=== PATIENT | female | born 1990 | race Caucasian/White ===

== ENCOUNTER 2019-06-24 20:11 | Emergency (ER) | payer OTHER ==
[~2019-06-24] VITALS: Ht 154.9 cm; Wt 56.7 kg
--- NOTE | 2019-06-24 20:35 | PHYS DOC ---
Adult General Chief Complaint Chief Complaint: facial numbness [facility] HPI 29-year-old female presents with left-sided facial numbness. The patient started to notice around 4 PM that her taste sensation was altered. She looked in the near a couple hours later and noticed that the left side of her mouth did not fully retract when she smiled. She also has decreased skin sensation of the upper middle and lower face. She further complains that she doesn't think her left eye is blinking as fast as the right. She's never had this before. The patient does have a history of migraines. She has had a migraine earlier today, but now states just a mild headache. She has no other deficits or complaints. Review of Systems Review of Systems Constitutional: Denies fever or chills [] Eyes: Denies change in visual acuity, redness, or eye pain [] HENT: Denies nasal congestion or sore throat [] Respiratory: Denies cough or shortness of breath [] Cardiovascular: No additional information not addressed in HPI [] GI: Denies abdominal pain, nausea, vomiting, bloody stools or diarrhea [] : Denies dysuria or hematuria [] Musculoskeletal: Denies back pain or joint pain [] Integument: Denies rash or skin lesions [] Neurologic: Left-sided facial numbness, headache.[] Endocrine: Denies polyuria or polydipsia [] All other systems were reviewed and found to be within normal limits, except as documented in this note. Physical Exam Physical Exam Constitutional: Well developed, well nourished, no acute distress, non-toxic appearance. [] HENT: Normocephalic, atraumatic, bilateral external ears normal, oropharynx moist, no oral exudates, nose normal. [] Eyes: PERRLA, EOMI, conjunctiva normal, no discharge. [] Neck: Normal range of motion, no tenderness, supple, no stridor. [] Cardiovascular:Heart rate regular rhythm, no murmur [] Lungs & Thorax: Bilateral breath sounds clear to auscultation [] Abdomen: Bowel sounds normal, soft, no tenderness, no masses, no pulsatile masses. [] Skin: Warm, dry, no erythema, no rash. [] Back: No tenderness, no CVA tenderness. [] Extremities: No tenderness, no cyanosis, no clubbing, ROM intact, no edema. [] Neurologic: Alert and oriented X 3, decreased sensation on the left side of face upper, middle, and lower. Decreased eye closing strength of the left eye. Uneven smile on the left side. [] Psychologic: Affect normal, judgement normal, mood normal. [] EKG EKG [] Radiology/Procedures Radiology/Procedures [] Impressions: CT head without contrast 06/24/2019. Reason for exam: Left facial numbness. Noncontrast images were performed. Exposure: One or more of the following individualized dose reduction techniques were utilized for this examination: 1. Automated exposure control 2. Adjustment of the mA and/or kV according to patient size 3. Use of iterative reconstruction technique. FINDINGS: There is no apparent intracranial mass, hemorrhage or abnormal extra-axial fluid collection. No area of abnormal density is seen in the brain. The ventricles and basilar cisterns are normally positioned. The sinuses and mastoid air cells are clear. IMPRESSION: No apparent acute abnormality. Electronically signed by: Myles Chapa Jr., MD (06/24/2019 9:16 PM) [facility] DICTATED AND SIGNED BY: MYLES CHAPA Jr, MD DATE: 06/24/192115 CC: HOMA BOSE DO; INA PIMENTEL ~ Course & Med Decision Making Course & Med Decision Making Pertinent Labs and Imaging studies reviewed. (See chart for details) The patient's labs are unremarkable. Her head CT is unremarkable. 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 I have given her guidance about eye care and maintenance. She will not wear contacts. She is stable for discharge at this time. [] Dragon Disclaimer Dragon Disclaimer This electronic medical record was generated, in whole or in part, using a voice recognition dictation system. Departure Departure: Impression: Primary Impression: Mc's palsy Disposition: 01 HOME, SELF-CARE Condition: STABLE Referrals: INA PIMENTEL (PCP) Patient Instructions: Mc's Palsy HOMA BOSE DO Jun 24, 2019 20:35
[2019-06-24 21:02] LABS: BASO % 0 % (0-3); EOS # 0.1 x10^3/uL (0.0-0.7); EOS % 1 % (0-3); HEMATOCRIT 44.9 % (36.0-47.0); HEMOGLOBIN 14.8 g/dL (12.0-15.5); LYMPH # 2.3 x10^3/uL (1.0-4.8); LYMPH % 29 % (24-48); MEAN CORPUSCULAR HEMOGLOBIN 31 pg (25-35); MEAN CORPUSCULAR HGB CONC 33 g/dL (31-37); MEAN CORPUSCULAR VOLUME 93 fL (79-100); MONO # 0.5 x10^3/uL (0.0-1.1); MONO % 6 % (0-9); NEUT # 5.1 x10^3uL (1.8-7.7); NEUT % 63 % (31-73); PLATELET COUNT 280 x10^3/uL (140-400); RED BLOOD COUNT 4.81 x10^6/uL (3.50-5.40); RED CELL DISTRIBUTION WIDTH 12.2 % (11.5-14.5)
[2019-06-24 21:07] LABS: CALCIUM 8.8 mg/dL (8.5-10.1); CREATININE 0.7 mg/dL (0.6-1.0); GFR 98.3; POTASSIUM 3.9 mmol/L (3.5-5.1)
[2019-06-24 21:13] LABS: ALBUMIN 3.6 g/dL (3.4-5.0); ALBUMIN/GLOBULIN RATIO 0.9 (1.0-1.7); TOTAL BILIRUBIN 0.2 mg/dL (0.2-1.0); TOTAL PROTEIN 7.4 g/dL (6.4-8.2)
--- NOTE | 2019-06-24 21:19 | RAD ---
CT head without contrast 06/24/2019. Reason for exam: Left facial numbness. Noncontrast images were performed. Exposure: One or more of the following individualized dose reduction techniques were utilized for this examination: 1. Automated exposure control 2. Adjustment of the mA and/or kV according to patient size 3. Use of iterative reconstruction technique. FINDINGS: There is no apparent intracranial mass, hemorrhage or abnormal extra-axial fluid collection. No area of abnormal density is seen in the brain. The ventricles and basilar cisterns are normally positioned. The sinuses and mastoid air cells are clear. IMPRESSION: No apparent acute abnormality. Electronically signed by: Myles Chapa Jr., MD (06/24/2019 9:16 PM) [facility]
[2019-06-24] MEDS ORDERED: diphenhydrAMINE 50 MG/ML VIAL IVP ONE (21:30)
[2019-06-24] MEDS ORDERED: KETOROLAC 30 MG/ML VIAL. IVP ONE (21:30)
[2019-06-24] MEDS ORDERED: METOCLOPRAMIDE HCL 10 MG/2 ML VIAL. IVP ONE (21:30)
[2019-06-24] MEDS ORDERED: IV NORMAL SALINE 1,000ML 1,000 ML IV ONE (21:30)
[2019-06-24 21:59] LABS: BILIRUBIN,URINE NEG (NEG); CLARITY,URINE HAZY; COLOR,URINE YELLOW; GLUCOSE,URINE NEG (NEG); NITRITE,URINE NEG (NEG); UROBILINOGEN,URINE 0.2 mg/dL (0.2 mg/dL)
[2019-06-24 22:00] LABS: BACTERIA,URINE 0 /HPF (0-FEW); RBC,URINE 0 /HPF (0-2); SQUAMOUS EPITHELIAL CELL,UR MOD /LPF
[2019-06-24 22:21] VITALS: BP 127/76
== END 2019-06-24 22:49 | disposition home or self-care (01) ==
LOC: ER 20:11
DX: G51.0 Bell's palsy (principal)
CPT/HCPCS: 36415; 70450; 80053; 81001; 85025; 87086; 96374; 96375; 99285; J1200; J1885; J2765; J7030

== ENCOUNTER 2021-04-07 23:01 | Emergency (ER) | payer OTHER ==
[~2021-04-07] VITALS: Ht 154.9 cm; Wt 59.1 kg
[2021-04-07 23:10] VITALS: BP 143/90
--- NOTE | 2021-04-07 23:15 | PHYS DOC ---
Past History Past Medical History: No Pertinent History (RONALDO GOODEN APRN) Past Surgical History: No Surgical History (RONALDO GOODEN APRN) Alcohol Use: Occasionally Drug Use: None (RONALDO GOODEN APRN) General Adult EDM: Chief Complaint: LACERATION/AVULSION HPI: HPI: Patient is a 31-year-old female presents to the emergency department for a laceration to her left eyebrow that occurred today after being head butted by her child. Patient states that her tetanus is up-to-date. (RONALDO GOODEN APRN) Review of Systems: Review of Systems: 14 body systems of the review of systems have been reviewed. See HPI for pertinent positive and negative responses, otherwise all other systems are negative, nonpertinent or noncontributory (RONALDO GOODEN APRN) Allergies: Allergies: Allergies Coded Allergies Type Severity Reaction Last Updated Verified No Known Drug Allergies 06/24/19 No (RONALDO GOODEN APRN) Physical Exam: PE: Constitutional: Well developed, well nourished, no acute distress, non-toxic appearance. [] HENT: Normocephalic, bilateral external ears normal, oropharynx moist, no oral exudates, nose normal. [] Eyes: PERRL, EOMI, conjunctiva normal, no discharge. [] Neck: Normal range of motion, n no stridor Cardiovascular: Normal peripheral perfusion Lungs & Thorax: Normal work of breathing, no tachypnea Abdomen: Bowel sounds normal, soft, no tenderness, no masses, no pulsatile masses. [] Skin: Warm, dry, no erythema, no rash, superficial laceration approximately 1.5 cm noted to left eyebrow no active bleeding Back: Normal range of motion Extremities: No tenderness, no cyanosis, no clubbing, ROM intact, no edema. [] Neurologic: Alert and oriented X 3, normal motor function, normal sensory function, no focal deficits noted. [] Psychologic: Affect normal, judgement normal, mood normal. [] (RONALDO GOODEN APRN) EKG: EKG: [] (RONALDO GOODEN APRN) Radiology/Procedures: Radiology/Procedures: [] (RONALDO GOODEN APRN) Heart Score: C/O Chest Pain: N/A Risk Factors: Risk Factors: DM, Current or recent (<one month) smoker, HTN, HLP, family history of CAD, obesity. Risk Scores: Score 0 - 3: 2.5% MACE over next 6 weeks - Discharge Home Score 4 - 6: 20.3% MACE over next 6 weeks - Admit for Clinical Observation Score 7 - 10: 72.7% MACE over next 6 weeks - Early Invasive Strategies (RONALDO GOODEN APRN) Course & Med Decision Making: Course & Med Decision Making Pertinent Labs and Imaging studies reviewed. (See chart for details) [] Patient is a 31-year-old female being seen in the ER for superficial laceration to her left eyebrow. The wound was cleansed with sterile saline and Dermabond placed. Patient tolerated procedure. Patient educated on laceration care. Patient advised to monitor for signs of infection. I discussed with patient all findings and diagnostic testing as well as the need to follow-up with PCP for further evaluation and treatment or return to the ER if any new or worsening symptoms. Strict return precautions were also discussed at length. Patient voiced understanding and agreement with the plan. Patient is hemodyn amically stable at the time of disposition. (RONALDO GOODEN APRN) Dragon Disclaimer: Memeo Disclaimer: This electronic medical record was generated, in whole or in part, using a voice recognition dictation system. (RONALDO GOODEN APRN) Departure Departure: Impression: Primary Impression: Laceration Disposition: HOME / SELF CARE / HOMELESS Condition: GOOD Referrals: KEYSHAWN GARDNER (PCP) Patient Instructions: Laceration Care, Adult Additional Instructions: You were seen in the emergency department for a laceration to your left eyebrow. This was closed with skin glue. Please monitor for any signs of infection which include redness, warmth, swelling or drainage. You can take Tylenol or ibuprofen at home for any pain. Follow-up with your primary care provider as needed. Return to the emergency department for any new or worsening concerns. Attending Signature Attending Signature I have reviewed the PA/ARTIST [employer]OR SEPAR[employer]'s note and plan of care. I was available for consultation as needed during the patient's visit in the emergency department. I agree with the clinical impression, plan, and disposition. (MARIO PETTIT DO) RONALDO GOODEN APRN Apr 07, 2021 23:15 MARIO PETTIT DO Apr 08, 2021 00:13
== END 2021-04-07 23:33 | disposition home or self-care (01) ==
LOC: ER 23:01
DX: S01.112A Laceration without foreign body of left eyelid and periocular area, initial encounter (principal); W51.XXXA Accidental striking against or bumped into by another person, initial encounter; Y93.89 Activity, other specified; Y92.89 Other specified places as the place of occurrence of the external cause; Y99.8 Other external cause status
CPT/HCPCS: 12011; 99282